=== PATIENT | female | born 1990 | race Two or more races ===

== ENCOUNTER 2023-08-25 09:14 | Outpatient (CLI) | payer OTHER ==
[~2023-08-25] VITALS: Ht 161.9 cm; Wt 91.8 kg
[2023-08-25] MEDS ORDERED: PRENTAB9 PO (10:16)
[2023-08-25] MEDS ORDERED: ASPI81CH33 PO (10:16)
[2023-08-25] MEDS ORDERED: IRON1TAB2 PO (10:16)
[2023-08-25] MEDS ORDERED: HOME MED LIST COMPLETE! XX SCH (10:20)
[2023-08-25 10:45] LABS: HEMOGLOBIN 9.3 g/dl (12.0-15.5); MEAN CORPUSCULAR HEMOGLOBIN 27.5 pg (27.0-33.0); MEAN CORPUSCULAR HGB CONC 32.1 g/dl (32.0-36.5); MEAN CORPUSCULAR VOLUME 85.8 fl (80.0-96.0); PLATELET COUNT, AUTOMATED 258 10^3/uL (150-450); RED BLOOD COUNT 3.38 10^6/uL (4.00-5.40); WHITE BLOOD COUNT 6.6 10^3/uL (4.0-10.0)
[2023-08-25 11:06] LABS: URIC ACID 3.8 MG/DL (3.1-7.8)
[2023-08-25 11:08] LABS: LDH LACTATE DEHYDROGENASE 163 U/L (120-246)
[2023-08-25 11:09] LABS: ALBUMIN 2.4 G/DL (3.2-5.2); ALKALINE PHOSPHATASE 138 U/L (46-116); ALT/SGPT 13 U/L (7.0-40); AST/SGOT 12 U/L (<34); BILIRUBIN,TOTAL 0.4 MG/DL (0.3-1.2); BLOOD UREA NITROGEN 6 MG/DL (9-23); CARBON DIOXIDE LEVEL 26 MMOL/L (20-31); CHLORIDE LEVEL 104 MMOL/L (98-107); CREATININE FOR GFR 0.63 MG/DL (0.55-1.30); GLOMERULAR FILTRATION RATE > 60.0 (>60); GLUCOSE, FASTING 89 MG/DL (60-100); SODIUM LEVEL 135 MMOL/L (136-145); TOTAL PROTEIN 6.1 G/DL (5.7-8.2)
[2023-08-25 11:34] LABS: APPEARANCE, URINE CLEAR (CLEAR); BACTERIA, URINE AUTO NEGATIVE (NEGATIVE); BILIRUBIN, URINE AUTO NEGATIVE (NEGATIVE); BLOOD, URINE BLOOD 1+ (NEGATIVE); COLOR, URINE STRAW (YELLOW); GLUCOSE, URINE (UA) AUTO NEGATIVE (NEGATIVE); KETONE, URINE AUTO NEGATIVE (NEGATIVE); LEUKOCYTE ESTERASE, URINE AUTO NEGATIVE (NEGATIVE); NITRITE, URINE AUTO NEGATIVE (NEGATIVE); PROTEIN, URINE AUTO NEGATIVE (NEGATIVE); RBC, URINE AUTO 0 /HPF (0-3); SPECIFIC GRAVITY URINE AUTO 1.004 (1.002-1.035); SQUAMOUS EPITHELIAL CELL UR AU 3 /HPF (0-6); UROBILINOGEN, URINE AUTO 0.2 mg/dL (0.0-2.0); WBC, URINE AUTO 0 /HPF (0-3)
[2023-08-25] MEDS: BETAMETHASONE SOLUSPAN 6MG/ML 5ML VIAL IM SCH (11:41)
[2023-08-25] MEDS ORDERED: LR 1,000 ML IV SCH (12:00)
[2023-08-25] MEDS ORDERED: CALCIUM GLUCONATE 1,000 MG in D5W MINI-BAG PLUS 100 ML IV PRN (12:10)
[2023-08-25] MEDS: MAG Sulf (OBGYN) 20GM/500ML 20,000 MG in IV 1 EA IV SCH (12:21)
[2023-08-25] MEDS: LR 1,000 ML IV SCH (12:21)
[2023-08-25] MEDS: MAG Sulf (L&D) 4 GM/100 ML 4 GM in IV 1 EA IV ONE (12:21)
[2023-08-25 12:57] LABS: Trichomonas vaginalis (AMP) NOT DETECTED (NEGATIVE)
[2023-08-25 13:21] LABS: GC DNA AMPLIFICATION NEGATIVE (NEGATIVE)
[2023-08-25 14:31] LABS: TOTAL PROTEIN,RANDOM URINE 16.3 MG/DL (0.0-14.0)
[2023-08-25 14:36] LABS: CREATININE,RANDOM URINE 23.6 MG/DL
[2023-09-14] MEDS ORDERED: ACET-897 PO (23:55)
[2023-09-14] MEDS ORDERED: TUMS500C PO (23:55)
[2023-09-18] MEDS ORDERED: IBUP80TA PO (12:18)
[2023-09-18] MEDS ORDERED: COLA100C5 PO (12:18)
== END 2023-08-25 12:10 ==
LOC: M LDO 09:14
PROVIDERS: ATTEND Obstetrics & Gynecology
DX: O46.92 Antepartum hemorrhage, unspecified, second trimester (principal); Z3A.26 26 weeks gestation of pregnancy; O30.042 Twin pregnancy, dichorionic/diamniotic, second trimester; O34.12 Maternal care for benign tumor of corpus uteri, second trimester; D25.9 Leiomyoma of uterus, unspecified; O26.892 Other specified pregnancy related conditions, second trimester; O34.42 Maternal care for other abnormalities of cervix, second trimester; N84.1 Polyp of cervix uteri; O60.02 Preterm labor without delivery, second trimester; O99.012 Anemia complicating pregnancy, second trimester; D50.9 Iron deficiency anemia, unspecified; Z91.018 Allergy to other foods; Z79.82 Long term (current) use of aspirin; Z79.899 Other long term (current) drug therapy
CPT/HCPCS: 36415; 76811; 76812; 76817; 80053; 81001; 82570; 83615; 84156; 84550; 85027; 86850; 86900; 86901; 87081; 87186; 87661; 87810; 87850; 96365; 96372; G0463; J0702; J3475

== ENCOUNTER 2023-08-26 08:55 | Outpatient (CLI) | payer OTHER ==
[~2023-08-26] VITALS: Ht 170.2 cm; Wt 92.8 kg
[~2023-08-26 08:55] MED LIST: ASPI81CH33 PO; IRON1TAB2 PO; PRENTAB9 PO
[2023-08-26 09:29] VITALS: BP 121/63
[2023-08-26] MEDS: BETAMETHASONE SOLUSPAN 6MG/ML 5ML VIAL IM ONE (09:57)
== END 2023-08-26 11:01 | disposition home or self-care (01) ==
LOC: M LDO 08:55
PROVIDERS: ATTEND Obstetrics & Gynecology
DX: O34.592 Maternal care for other abnormalities of gravid uterus, second trimester (principal); O99.012 Anemia complicating pregnancy, second trimester; O30.042 Twin pregnancy, dichorionic/diamniotic, second trimester; N85.8 Other specified noninflammatory disorders of uterus; D50.9 Iron deficiency anemia, unspecified; Z3A.26 26 weeks gestation of pregnancy
CPT/HCPCS: 96372; G0463; J0702

== ENCOUNTER → 2023-09-08 | Outpatient (CLI) | payer OTHER ==
[2023-09-08 19:37] LABS: HEMATOCRIT 28.4 % (36.0-47.0); HEMOGLOBIN 8.9 g/dl (12.0-15.5); MEAN CORPUSCULAR HEMOGLOBIN 27.1 pg (27.0-33.0); MEAN CORPUSCULAR HGB CONC 31.3 g/dl (32.0-36.5); MEAN CORPUSCULAR VOLUME 86.6 fl (80.0-96.0); PLATELET COUNT, AUTOMATED 279 10^3/uL (150-450); RED BLOOD COUNT 3.28 10^6/uL (4.00-5.40); WHITE BLOOD COUNT 6.5 10^3/uL (4.0-10.0)
== END ==
LOC: M PLALAB 13:44
PROVIDERS: ATTEND Obstetrics & Gynecology
DX: O30.043 Twin pregnancy, dichorionic/diamniotic, third trimester (principal); Z3A.00 Weeks of gestation of pregnancy not specified

== ENCOUNTER 2023-09-13 13:22 | Outpatient (CLI) | payer OTHER ==
[~2023-09-13 13:22] MED LIST changes: +ALBUTEROL SULFATE 2.5MG/0.5ML INH NEB SOLN INH PRN; +EPINEPHrine INJ 1 MG/ML 1ML AMP IM PRN; +diphenhydrAMINE 50MG/ML VIAL IV PRN; +methylPREDNISolone 125MG 2ML VIAL IV PRN
[2023-09-13] MEDS ORDERED: NS 1,000 ML IV SCH (13:30)
[2023-09-13 13:50] VITALS: BP 141/61; O2SAT 99
[2023-09-13 14:25] VITALS: BP 128/69; O2SAT 100
[2023-09-13] MEDS: IRON SUCROSE 300 MG in NS 250 ML OVER 90 MIN. IV ONE (14:37)
[2023-09-14] MEDS ORDERED: ACET-897 PO (23:55)
[2023-09-14] MEDS ORDERED: TUMS500C PO (23:55)
== END 2023-09-13 16:15 ==
LOC: M INFU 13:22
PROVIDERS: ATTEND Obstetrics & Gynecology
DX: D50.9 Iron deficiency anemia, unspecified (principal)
CPT/HCPCS: 96365; J1756

== ENCOUNTER → 2023-11-17 | Outpatient (CLI) | payer OTHER ==
[~2023-11-17] MED LIST changes: +ACET-897 PO; -ALBUTEROL SULFATE 2.5MG/0.5ML INH NEB SOLN INH PRN; +COLA100C5 PO; -EPINEPHrine INJ 1 MG/ML 1ML AMP IM PRN; +IBUP80TA PO; +TUMS500C PO; -diphenhydrAMINE 50MG/ML VIAL IV PRN; -methylPREDNISolone 125MG 2ML VIAL IV PRN
== END ==
LOC: M WHC 10:51
PROVIDERS: ATTEND Obstetrics & Gynecology
DX: D25.9 Leiomyoma of uterus, unspecified (principal); N85.2 Hypertrophy of uterus

== ENCOUNTER → 2024-01-05 | Outpatient (CLI) | payer OTHER | LOC: M PLARAD 13:19 | PROVIDERS: ATTEND Obstetrics & Gynecology | DX: D25.9 Leiomyoma of uterus, unspecified (principal) ==

== ENCOUNTER 2025-03-02 18:29 | Emergency (ER) | payer OTHER ==
[~2025-03-02] VITALS: Ht 160 cm; Wt 108.0 kg
[2025-03-02 20:21] VITALS: BP 101/54; TEMP 97.8; O2SAT 100
[2025-03-02] MEDS ORDERED: OSEL75CA PO (20:48)
[2025-03-02] MEDS: OSELTAMIVIR PHOSPHATE 75 MG CAP PO ONE (20:53)
== END 2025-03-02 21:03 | disposition home or self-care (01) ==
LOC: M ED 18:29
DX: O98.519 Other viral diseases complicating pregnancy, unspecified trimester (principal); Z3A.00 Weeks of gestation of pregnancy not specified